=== PATIENT | male | born 1950 | race Caucasian/White ===

== ENCOUNTER 2016-09-20 23:52 | Emergency (ER) | payer MEDICARE, BC ==
[2016-09-21 00:11] VITALS: BP 183/83
[2016-09-21] MEDS ORDERED: Ketorolac 60 MG/2 ML SDV IM ONE (00:32)
--- NOTE | 2016-09-21 01:13 | EDM.PDOC ---
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 He is only taking Tylenol for pain. He feels he needs some extra help tonight. Severity: severe Associated Symptoms: Reports: denies other symptoms Allergies/ADRs: Allergies bee venom Allergy (Uncoded 09/21/16 00:17) Other Home Medications: Ambulatory Orders Aspirin [Children's Aspirin] 81 mg PO DAILY 07/08/16 [Confirmed 09/21/16] EPINEPHrine [Epipen] 0.3 mg IM ASDIRECTED PRN 07/08/16 [Confirmed 09/21/16] Metoprolol Succinate [Toprol XL] 50 mg PO DAILY 07/08/16 [Confirmed 09/21/16] Acetaminophen [Tylenol Extra Strength] 500 mg PO ASDIRECTED 09/21/16 [Confirmed 09/21/16] Hydrochlorothiazide/Lisinopril [Lisinopril-HCTZ 20-25 MG] 1 tab PO DAILY [Confirmed 09/21/16] Past Medical History HEENT History: Reports: Impaired vision Cardiovascular History: Reports: Hypertension Respiratory History: Reports: Sleep apnea Gastrointestinal History: Reports: Colon polyp Genitourinary History: Reports: Renal calculus Musculoskeletal History: Reports: Arthritis Neurological History: Reports: None Endocrine/Metabolic History: Reports: Diabetes, type II, Obesity/BMI 30+ Dermatologic History: Reports: Other (see below) Other Dermatologic History: history rash to right foot - Infectious Disease History Infectious Disease History: Reports: Chicken pox, Measles, Pertussis (whooping cough) - Past Surgical History GI Surgical History: Reports: Appendectomy, Colonoscopy Male Surgical History: Reports: Other (see below) Other Male Surgeries/Procedures: left kidney dilated in 1974, according to patient Musculoskeletal Surgical History: Reports: Other (see below) Other Musculoskeletal Surgeries/Procedures:: injections to back and shoulder Social & Family History - Family History Family Medical History: Noncontributory - Tobacco Use Smoking Status *Q: Never Smoker Years of Tobacco use: 40 Packs/Tins Daily: 1 Used Tobacco, but Quit: Yes Month Tobacco Last Used: 06/1999 Second Hand Smoke Exposure: No - Caffeine Use Caffeine Use: Reports: Coffee, Soda - Alcohol Use Days Per Week of Alcohol Use: 1 Number of Drinks Per Day: 1 Total Drinks Per Week: 1 - Recreational Drug Use Recreational Drug Use: No Review of Systems - Review of Systems Review Of Systems: See Below Respiratory: Reports: No Symptoms Cardiovascular: Reports: no symptoms GI/Abdominal: Reports: No symptoms Musculoskeletal: Reports: neck pain, shoulder pain (Right side) Skin: Reports: no symptoms (No rash) Neurological: Reports: Paresthesia (Some vague paresthesias of the right arm without a specific dermatome pattern) Trauma Exam - Physical Exam Exam: See Below Exam Limited By: No limitations General Appearance: Reports: alert, moderate distress (Patient was significantly uncomfortable on arrival) Head: Reports: atraumatic Neck: Reports: limited range of motion (Patient had limited ability to flex the neck towards the painful shoulder. There was also some paraspinous palpation tenderness especially along the right) Respiratory Exam: Reports: no respiratory distress Extremities: Reports: other (Despite the subjective numbness in his arm I could not reproduce an objective dermatome pattern of deficit) Course - Vital Signs Last Recorded V/S: Last Vital Signs Temp 99.5 F 09/21/16 00:19 Pulse 67 09/21/16 00:19 Resp 16 09/21/16 00:19 BP 183/83 H 09/21/16 00:19 Pulse Ox 95 09/21/16 00:19 - Orders/Labs/Meds Meds: Medications Discontinued Medications Generic Name Dose Route Start Last Admin Trade Name Devaughnq PRN Reason Stop Dose Admin Ketorolac Tromethamine 60 mg 09/21/16 00:32 09/21/16 00:39 Toradol IM 09/21/16 00:33 60 mg ONETIME ONE Administration - Re-Assessments/Exams Free Text/Narrative Re-Assessment/Exam: 09/21/16 01:11 Patient was given an injection of Toradol 60 mg IM which gave him some moderate improvement. I discharged him with 10 hydrocodone to use sparingly especially when trying to rest, and after reviewing his recent MRI results felt he was a good candidate to discuss his condition with Dr. Issa Hewitt. He is going to make an appointment in the near future. Departure - Departure Time of Disposition: 01:50 Disposition: Home, Self-Care 01 Condition: good Clinical Impression: Neck arthritis, Cervical radiculopathy Instructions: Shoulder Pain, [id number] Referrals: Abdoulaye Saenz MD [Primary Care Provider] - Forms: ED Department Discharge Care Plan Goals: Ibuprofen or naproxen may help, and add stronger pain medications as needed especially for rest. Consider discussing your condition with Dr. Issa Hewitt in the near future. Return anytime if worsening especially if he developed weakness or lack of sensation in your right arm.
== END 2016-09-21 01:30 | disposition home or self-care (01) ==
LOC: JP.ED 23:52
DX: M46.92 Unspecified inflammatory spondylopathy, cervical region (principal); M54.12 Radiculopathy, cervical region; I10 Essential (primary) hypertension; E66.9 Obesity, unspecified; Z68.1 Body mass index [BMI] 19.9 or less, adult; Z90.49 Acquired absence of other specified parts of digestive tract; Z98.890 Other specified postprocedural states; Z79.82 Long term (current) use of aspirin; Z79.899 Other long term (current) drug therapy; Z91.030 Bee allergy status; M47.812 Spondylosis without myelopathy or radiculopathy, cervical region; M19.011 Primary osteoarthritis, right shoulder; M47.22 Other spondylosis with radiculopathy, cervical region
CPT/HCPCS: 20610; 72050; 73030; 96372; 99204; 99283; J1885; J3301

== ENCOUNTER 2018-10-02 00:12 | Emergency (ER) | payer MEDICARE, BC ==
[2018-10-02] MEDS ORDERED: Cyclobenzaprine 10 MG Tab PO ONE (00:53)
[2018-10-02] MEDS ORDERED: Ketorolac 60 MG/2 ML SDV IM ONE (00:53)
[2018-10-02] MEDS ORDERED: Cyclobenzaprine 10 MG Tab ONE (00:55)
[2018-10-02] MEDS ORDERED: Ketorolac 60 MG/2 ML SDV ONE (00:55)
[2018-10-02] MEDS ORDERED: HYDROmorphone 1 MG/ML Syringe IM ONE (01:19)
[2018-10-02] MEDS ORDERED: HYDROmorphone 1 MG/ML Syringe ONE (01:20)
[2018-10-02 06:37] VITALS: BP 136/68
== END 2018-10-02 02:04 | disposition home or self-care (01) ==
LOC: JP.ED 00:12
DX: M54.5 Low back pain (principal)
CPT/HCPCS: 96372; 99282; A9270; J1170; J1885